=== PATIENT | female | born 1990 | race American Indian/Alaskan Native ===

== ENCOUNTER 2017-08-15 22:26 | Emergency (ER) | payer MEDICAID ==
--- NOTE | 2017-08-16 00:37 | Emergency Department Report ---
ED Psych HPI - General Chief Complaint: Psych Stated Complaint: 1013 Time Seen by Provider: 08/16/17 00:30 Source: patient, police Mode of arrival: Ambulatory - History of Present Illness Initial Comments: Patient is brought in by police for evaluation for suicidal ideation, hearing auditory hallucinations, which are instructing patient loudly and more consistently to kill herself. Patient has underlying bipolar disorder, has had previous suicide attempts, approximately age 8 and age 22, and is also chronically depressed, and threats frequently about deaths of closed Loved ones , including her daughter 2 years old, one year ago, a cousin, and uncle, as well as her grandmother and her best friend. She has been having increased interpersonal difficulties with her mother, with whom she lives, has been fighting, and mother finally contacted police to have patient evaluated, which is a reason for visit today. She agrees that she has been fighting with mother , and understands that she relies on mother, finds it difficult to get along, primarily because of her depression, and her increased thoughts of suicide. Patient has said that she has developed a plan, and that her voices have told her exactly how to kill herself, and that she should hang herself. She still feels suicidal at this time. Past medical health is good otherwise, and her primary medications are all psychiatric. Although patient has elicited allergy to Zyprexa down and risperidone, these are primarily secondary reactions or side effects of the medications themselves, including dystonic reactions, and muscular stiffness. MD Complaint: suicidal ideation -: Gradual, year(s), unknown (worsening, with hallucinations being more insistent) Associated Psychiatric Symptoms: depression, suicidal ideation, auditory hallucinations History of same: Yes Quality: constant, getting worse Improves With: none Worsens With: none - Related Data Allergies Allergy/AdvReac Type Severity Reaction Status Date / Time ziprasidone [From Geodon] Allergy Unknown Verified 08/15/17 23:11 risperidone AdvReac Unknown Verified 08/15/17 23:11 ED Review of Systems ROS: Stated complaint: 1013 Other details as noted in HPI Comment: All other systems reviewed and negative Constitutional: denies: chills, fever Eyes: denies: eye pain, eye discharge, vision change ENT: denies: ear pain, throat pain Respiratory: denies: cough, shortness of breath, wheezing Cardiovascular: denies: chest pain, palpitations Endocrine: no symptoms reported Gastrointestinal: denies: abdominal pain, nausea, diarrhea Musculoskeletal: denies: back pain, joint swelling, arthralgia Skin: denies: rash, lesions Neurological: denies: headache, weakness, paresthesias Psychiatric: as per HPI Hematological/Lymphatic: denies: easy bleeding, easy bruising ED Past Medical Hx - Past Medical History Previous Medical History?: Yes Hx Psychiatric Treatment: Yes Additional medical history: Prior suicide attempts, bipolar disorder, chronic depression - Social History Smoking Status: Never Smoker Substance Use Type: None, Prescribed ED Physical Exam - General Limitations: No Limitations General appearance: alert, in no apparent distress - Head Head exam: Present: atraumatic, normocephalic - Eye Eye exam: Present: normal appearance, PERRL - ENT ENT exam: Present: normal exam - Neck Neck exam: Present: normal inspection. Absent: tenderness, meningismus - Respiratory Respiratory exam: Present: normal lung sounds bilaterally - Cardiovascular Cardiovascular Exam: Present: regular rate - GI/Abdominal GI/Abdominal exam: Present: soft, normal bowel sounds - Rectal Rectal exam: Present: deferred - Extremities Exam Extremities exam: Present: normal inspection - Back Exam Back exam: Present: normal inspection - Neurological Exam Neurological exam: Present: alert, oriented X3, CN II-XII intact. Absent: motor sensory deficit - Psychiatric Psychiatric exam: Present: depressed, suicidal ideation. Absent: anxious - Skin Skin exam: Present: warm, dry, intact, normal color. Absent: rash ED Course Vital Signs 08/15/17 08/15/17 22:45 23:15 Temperature 98.3 F Pulse Rate 64 Respiratory 15 15 Rate Blood Pressure 124/81 Blood Pressure 124/81 [Right] O2 Sat by Pulse 99 99 Oximetry ED Medical Decision Making - Medical Decision Making This chronically depressed bipolar patient with prior history of suicidal ideation and suicide attempts, has been having worsening symptoms developing over the past few days to weeks, and feels that she has had a crisis point, and that it she is at risk for suicide, with intention to hang herself. I concur with patient's assessment, believe that she is a threat to herself, and will likely need psychiatric evaluation and medical management. Patient will be medicated with Haldol, as she has reported an allergy to Zyprexa down, but this sounds to be typical side effects, and although I will not give that now, I will reserve the option of continuing to treat patient with intramuscular Zyprexa down if she has any behavioral outburst. 1013 involuntary confinement signed by myself at this time. - Differential Diagnosis suicidal ideation, depression, bipolar disorder Critical Care Time: No Critical care attestation.: If time is entered above; I have spent that time in minutes in the direct care of this critically ill patient, excluding procedure time. ED Disposition Clinical Impression: Suicidal ideation, Auditory hallucinations, Unspecified behavioral syndromes associated with physiological disturbances and physical factors Disposition: DC/TX-65 PSY HOSP/PSY UNIT Is pt being admited?: No Does the pt Need Aspirin: No Condition: Stable Referrals: PRIMARY CARE, [Primary Care Provider] - 3-5 Days Time of Disposition: 00:40
[2017-08-16] MEDS ORDERED: HALDOL IM PRN (00:41)
[2017-08-16 00:46] LABS: Basophils % (Auto) 0.7 % (0.0-1.8); Eosinophils # (Auto) 0.1 K/mm3 (0.0-0.4); Eosinophils % (Auto) 2.3 % (0.0-4.3); Hematocrit 38.2 % (30.3-42.9); Hemoglobin 12.4 gm/dl (10.1-14.3); Lymphocytes # (Auto) 2.5 K/mm3 (1.2-5.4); Lymphocytes % (Auto) 39.9 % (13.4-35.0); Mean Corpuscular HGB Conc 32 % (30-34); Mean Corpuscular Hemoglobin 28 pg (28-32); Mean Corpuscular Volume 87 fl (79-97); Monocytes # (Auto) 0.9 K/mm3 (0.0-0.8); Monocytes % (Auto) 13.5 % (0.0-7.3); Red Blood Count 4.41 M/mm3 (3.65-5.03); Red Cell Distribution Width 15.1 % (13.2-15.2)
[2017-08-16 00:58] LABS: Platelet Count 76 K/mm3 (140-440)
[2017-08-16 01:04] LABS: BUN/Creatinine Ratio 16; Blood Urea Nitrogen 11 mg/dL (7-17); Calcium 9.6 mg/dL (8.4-10.2); Hemolysis Index 13
[2017-08-16 02:45] LABS: Amphetamine Screen,Urine PRESUMPTIVE NEGATIVE; Benzodiazepines Screen,Urine PRESUMPTIVE NEGATIVE; Cannabinoid Screen,Urine PRESUMPTIVE NEGATIVE; Cocaine Screen,Urine PRESUMPTIVE NEGATIVE; HCG Qualitative,Urine Negative (Negative); Methadone Screen,Urine PRESUMPTIVE NEGATIVE; Opiate Screen,Urine PRESUMPTIVE NEGATIVE
[2017-08-16 02:50] LABS: Bilirubin,Urine NEG (Negative); Blood,Urine NEG (Negative); Color,Urine Yellow (Yellow); Mucus,Urine 3+ /HPF; Urobilinogen,Urine < 2.0 mg/dL (<2.0)
[2017-08-16] MEDS ORDERED: MOTRIN PO ONE (04:53)
[2017-08-16] MEDS ORDERED: ZOFRAN ODT PO ONE (04:53)
[2017-08-16 12:07] LABS: Alanine Aminotransferase 8 units/L (7-56); Lipase 39 units/L (13-60)
[2017-08-16 12:31] VITALS: BP 125/60
--- NOTE | 2017-08-16 14:04 | Consultation ---
History of Present Illness - Reason for Consult Consult date: 08/16/17 Reason for consult: Mental Health Evaluation Requesting physician: CHRISTIANO LUND - Chief Complaint Chief complaint: "I am suicidal" - History of Present Psychiatric Illness 26 y.o. AA female presenting to the ER for SI's. Today the patient is calm and cooperative during the assessment. She stated that she got in a argument with her mother at their home. She could not explain in detail why she wanted to kill herself other than she has tried to kill herself in the past. She stated that she takes pills for bipolar do, but could not ID them. She stated multiple inpatient psy setting for stabilization. She would not confirm or deny a suicide plan when asked, but endorses SI's. She denies HI's and AVH's. She denies erratic sleep and a poor appetite. She denies recreational drug use and alcohol consumption (etoh). Medications and Allergies Allergies Allergy/AdvReac Type Severity Reaction Status Date / Time ziprasidone [From Yehuda] Allergy Unknown Verified 08/15/17 23:11 risperidone AdvReac Unknown Verified 08/15/17 23:11 Active Meds: Active Medications Haloperidol Lactate (Haldol) 5 mg IM TID PRN PRN Reason: Agitation Past psychiatric history - Past Medical History Past Medical History: No medical history Past Surgical History: No surgical history - past Psychiatric treatment and history Psych: Bipolar psychiatric treatment history: Multiple inpatient psy settings in the past. Denies a fam psy hx. - Social History Social history: lives with family Mental Status Exam - Vital signs Last Vital Signs Temp 98.2 F 08/16/17 09:09 Pulse 80 08/16/17 09:09 Resp 18 08/16/17 09:09 BP 125/60 08/16/17 09:09 Pulse Ox 99 08/16/17 09:09 - Exam Narrative exam: MSE: Appearance: calm, cooperative Behavior: regular eye contact Speech: regular rate and tone Mood: "okay, but sad" Affect: congruent to mood Thought Process: circumstantial Thought Content: denies HI's and AVH's Motor Activity: ambulatory Cognition: A/O x 3 Insight: variable Judgment: variable Results Result Diagrams: 08/16/17 00:08 08/16/17 00:08 Abnormal lab results 08/16/17 08/16/17 08/16/17 Range/Units 00:08 00:08 00:08 Plt Count (140-440) K/mm3 Lymph % (Auto) (13.4-35.0) % Sunflower % (Auto) (0.0-7.3) % Sunflower # (0.0-0.8) K/mm3 Glucose 108 H (65-100) mg/dL Salicylates < 0.3 L (2.8-20.0) mg/dL Acetaminophen < 5.0 L (10.0-30.0) ug/mL 08/16/17 Range/Units 00:08 Plt Count 76 L (140-440) K/mm3 Lymph % (Auto) 39.9 H (13.4-35.0) % Sunflower % (Auto) 13.5 H (0.0-7.3) % Sunflower # 0.9 H (0.0-0.8) K/mm3 Glucose (65-100) mg/dL Salicylates (2.8-20.0) mg/dL Acetaminophen (10.0-30.0) ug/mL All other labs normal. Assessment and Plan Assessment and plan: Impression: Unspecified Mood DO. Today the patient is calm and cooperative during the assessment. The patient endorses SI's. DDx: Bipolar DO Recommendation/Plan: Continue 1013 with placement to [facility] today. Discussed generalized coping skills with patient.
== END 2017-08-16 22:33 ==
LOC: ED 22:26
DX: F59 Unspecified behavioral syndromes associated with physiological disturbances and physical factors (principal); F39 Unspecified mood [affective] disorder; F31.9 Bipolar disorder, unspecified; Z88.8 Allergy status to other drugs, medicaments and biological substances
CPT/HCPCS: 36415; 80048; 80164; 80307; 81001; 81025; 82150; 83690; 84075; 84450; 84460; 85025; 99285; G0480; 80320; Q0162

== ENCOUNTER 2017-12-19 11:18 | Emergency (ER) | payer MEDICAID ==
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
[2017-12-19 12:31] LABS: Basophils % (Auto) 0.4 % (0.0-1.8); Eosinophils # (Auto) 0.1 K/mm3 (0.0-0.4); Eosinophils % (Auto) 1.6 % (0.0-4.3); Hematocrit 36.7 % (30.3-42.9); Hemoglobin 11.9 gm/dl (10.1-14.3); Lymphocytes # (Auto) 1.7 K/mm3 (1.2-5.4); Lymphocytes % (Auto) 39.5 % (13.4-35.0); Mean Corpuscular HGB Conc 32 % (30-34); Mean Corpuscular Hemoglobin 27 pg (28-32); Mean Corpuscular Volume 84 fl (79-97); Monocytes # (Auto) 0.5 K/mm3 (0.0-0.8); Monocytes % (Auto) 12.6 % (0.0-7.3); Platelet Count 133 K/mm3 (140-440); Red Blood Count 4.38 M/mm3 (3.65-5.03); Red Cell Distribution Width 14.7 % (13.2-15.2)
[2017-12-19 12:33] LABS: Amorphous Crystals,Urine Few; Bacteria,Urine 1+ /HPF (Negative); Bilirubin,Urine NEG (Negative); Blood,Urine NEG (Negative); Color,Urine Yellow (Yellow); Mucus,Urine FEW /HPF; Protein,Urine <15 mg/dL mg/dL (Negative); Urobilinogen,Urine < 2.0 mg/dL (<2.0)
[2017-12-19 12:40] LABS: Benzodiazepines Screen,Urine PRESUMPTIVE NEGATIVE; Cannabinoid Screen,Urine PRESUMPTIVE NEGATIVE; Cocaine Screen,Urine PRESUMPTIVE NEGATIVE; Methadone Screen,Urine PRESUMPTIVE NEGATIVE; Opiate Screen,Urine PRESUMPTIVE NEGATIVE
[2017-12-19 12:54] LABS: Alanine Aminotransferase 28 units/L (7-56); Albumin 4.2 g/dL (3.9-5); BUN/Creatinine Ratio 9; Blood Urea Nitrogen 6 mg/dL (7-17); Calcium 10.4 mg/dL (8.4-10.2); Hemolysis Index 2
[2017-12-19 12:56] LABS: Amphetamine Screen,Urine PRESUMPTIVE POSITIVE
[2017-12-19] MEDS ORDERED: TYLENOL PO ONE (15:43)
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
[2017-12-20 10:29] VITALS: BP 111/63
== END 2017-12-20 15:17 ==
LOC: ED 11:18
DX: F31.9 Bipolar disorder, unspecified (principal); F20.9 Schizophrenia, unspecified; F17.200 Nicotine dependence, unspecified, uncomplicated; F12.90 Cannabis use, unspecified, uncomplicated; Z88.8 Allergy status to other drugs, medicaments and biological substances
CPT/HCPCS: 36415; 80053; 80307; 81001; 84703; 85025; 99285; G0480; 80320